=== PATIENT | female | born 1960 ===

== ENCOUNTER 2017-09-19 23:39 | Emergency (ER) | payer MEDICAID ==
[2017-09-20 00:09] VITALS: BP 113/72; PULSE 55; RESP 18; TEMP 98; O2SAT 99
--- NOTE | 2017-09-20 00:24 | ED PDOC ---
HPI: General Adult Time Seen by Provider: 09/20/17 00:10 Chief Complaint (Nursing): Finger,Hand,&Wrist History Per: Patient Additional Complaint(s): Pt. states on Friday she tripped and fell injuring his R pinky. States the following day she developed pain, swelling, and redness on the finger which has progressively worsened. Denies fever, numbness, tingling, other injury. Past Medical History Reviewed: Historical Data, Nursing Documentation, Vital Signs Vital Signs: Last Vital Signs Temp 98.0 F 09/20/17 00:05 Pulse 55 L 09/20/17 00:05 Resp 18 09/20/17 00:05 BP 113/72 09/20/17 00:05 Pulse Ox 99 09/20/17 00:28 - Medical History PMH: Asthma - Family History Family History: States: No Known Family Hx - Home Medications Home Medications: Ambulatory Orders Medication Instructions Recorded Amoxicillin [Amoxicillin] 875 mg PO BID 12/29/16 Azithromycin [Zithromax] 250 mg PO DAILY #6 tab 12/29/16 Cholecalciferol [Vitamin D 1000 IU] 5,000 units PO DAILY 12/29/16 Montelukast Sodium [Singulair] 5 mg PO DAILY 12/29/16 Promethazine HCl/Codeine 10 ml PO Q8H PRN #150 ml 12/29/16 [Prometh-Codein 6.25-10 mg/5 ml] predniSONE [predniSONE Tab] 20 mg PO DAILY 12/29/16 Cephalexin [cephalexin] 500 mg PO Q6 #28 cap 09/20/17 - Allergies Allergies/Adverse Reactions: Allergies Allergy/AdvReac Type Severity Reaction Status Date / Time No Known Allergies Allergy Verified 09/20/17 00:04 Review of Systems ROS Statement: Except As Marked, All Systems Reviewed And Found Negative Physical Exam - Physical Exam Appears: Positive for: Well, Non-toxic, No Acute Distress Skin: Positive for: Normal Color, Warm. Negative for: Rash Pulses-Radial (R): 2+ Extremity: Positive for: Normal ROM, Other (R 5th digit on PIP on dorsal surface with erythematous papule with central open wound without fluctuance; FROM actively of R 5th digit; cap refill < 2 seconds of R 5th digit) - ECG O2 Sat by Pulse Oximetry: 99 - Radiology X-Ray: Interpreted by Me (R 5th digit x-ray) X-Ray Interpretation: No Acute Disease Disposition - Clinical Impression Clinical Impression: Cellulitis - Patient ED Disposition Is Patient to be Admitted: No - Disposition Referrals: Marlon Higuera [Outside] Disposition: Routine/Home Disposition Time: 01:43 Condition: STABLE Prescriptions: Cephalexin [cephalexin] 500 mg PO Q6 #28 cap Instructions: Cellulitis (ED) Forms: [employer] (Beninese)
--- NOTE | 2017-09-20 10:16 | RAD ---
PROCEDURE: Right small finger radiographs. HISTORY: trauma COMPARISON: None. TECHNIQUE: AP radiograph of the right hand, as well as spot oblique and lateral images of small finger were obtained. FINDINGS: RIGHT SMALL FINGER: Normal right small finger, without fracture or focal lesion. Remainder of the right hand (as seen on the AP view) grossly unremarkable. JOINTS: Normal. SOFT TISSUES: Limited dorsal soft edema is suggested posterior to the proximal interphalangeal joint region. OTHER FINDINGS: None. IMPRESSION: No acute fracture dislocation right small finger with soft tissue edema noted as discussed above.
== END 2017-09-20 01:59 | disposition home or self-care (01) ==
LOC: H.ER 23:39
DX: L03.011 Cellulitis of right finger (principal)